=== PATIENT | female | born 2000 | race Caucasian/White ===

== ENCOUNTER → 2024-11-04 | Outpatient (CLI) | payer OTHER, SELFPAY ==
--- NOTE | 2024-11-04 14:10 | CT_ITS ---
EXAM: Noncontrasted CT of the paranasal sinuses, with sagittal and coronal reconstructed images. CLINICAL HISTORY: Chronic sinusitis. COMPARISON: None. TECHNIQUE: Noncontrasted CT of the paranasal sinuses, with sagittal and coronal reconstructed images. FINDINGS: Mild nasal septal deviation to the left is seen. Moderate mucosal thickening is seen of the left ethmoid sinus, with multiple opacified or incompletely opacified air cells noted. Mild mucosal thickening is seen in the right frontal and left maxillary sinuses. No air-fluid level is seen. The remaining paranasal sinuses appear clear, as do the mastoid air cells. Complete or near-complete occlusion of the left ostium is seen. The right ostium is not occluded. No osseous destructive changes seen. No orbital pathology is noted. CT/Sinus/Facial Bone IMPRESSION: Chronic appearing paranasal sinus disease as described. Reading Location: [address]
== END | disposition home or self-care (01) ==
LOC: CT 14:04
PROVIDERS: Referring Provider Otolaryngology; Visit Provider Otolaryngology
DX: J32.9 Chronic sinusitis, unspecified (principal)
CPT/HCPCS: 70486